=== PATIENT | female | born 1990 | race Hispanic/Latino ===

== ENCOUNTER → 2020-03-10 14:22 | Outpatient (CLI) | payer BC, SELFPAY ==
--- NOTE | ~2020-03-10 | US_ITS ---
EXAMINATION: US OB transvaginal DATE: 03/10/2020 14:52 INDICATION: Pelvic pain during first trimester . TECHNIQUE: Real-time pelvic ultrasound utilizing both a transvaginal and transabdominal probe was pe rformed. The interpreting radiologist was not present for the study. COMPARISON: None. FINDINGS: The uterus measures 10.5 x 5.5 x 6.3 cm. There is an intrauterine gestational sac. A yolk sac and fe suni pole are identified. The crown rump length measures 3 mm, which correlates with an estimated gest ational age of 6 weeks and 0 days. heart motion is identified measuring 152 beats per minute (b pm) by M-mode Doppler. The right ovary measures 5.5 x 3.7 x 6.0 cm. There are 2 anechoic simple appearing cysts in the right ovary, the larger measuring 3.9 x 3.5 x 3.0 cm and the smaller measuring 3.4 x 2.5 x 3.2 cm. The lef t ovary is poorly visualized measuring approximately 3.6 x 2.2 x 2.5 cm. There is a small amount of a nechoic free fluid in the cul-de-sac. IMPRESSION: 1. Single living fetus with heart rate of 152 bpm. 2. Gestational age by ultrasound of 6 weeks 0 day(s) +/- 4 day(s) with ultrasound estimated date of delivery (JOCELYNN) of 11/03/2020. Reviewed, dictated and finalized at [facility]. TENANCE APPRENTICE IMPRESSION: 1. Single living fetus with heart rate of 152 bpm. 2. Gestational age by ultrasound of 6 weeks 0 day(s) +/- 4 day(s) with ultraso und estimated date of delivery (JOCELYNN) of 11/03/2020.
== END ==
PROVIDERS: Visit Provider Obstetrics & Gynecology
DX: O34.80 Maternal care for other abnormalities of pelvic organs, unspecified trimester (principal); Z3A.01 Less than 8 weeks gestation of pregnancy
CPT/HCPCS: 76817

== ENCOUNTER 2020-10-04 10:45 | Outpatient (CLI) | payer BC, SELFPAY ==
--- NOTE | ~2020-10-04 | US_ITS ---
EXAMINATION: US OB follow up DATE: 10/04/2020 11:33 INDICATION: Size greater than expected for estimated gestational age. TECHNIQUE: Real-time ultrasound of the pelvis was performed. The interpreting radiologist was not pre sent for the study. COMPARISON: 03/10/2020 FINDINGS: There is a single living fetus in breech presentation. The placenta is fundal. heart rate is 1 34 beats per minute (bpm). The amniotic fluid index is 18.5 cm, which is normal (5th%-95%: 7.7-24.9 cm at 36 weeks estimated gestational age) . The following biometric data were obtained: BPD: 9.0 cm -> 36 weeks 3 days Head circumference: 35.1 cm -> 40 weeks 6 days Abdominal circumference: 34.1 cm -> 38 weeks 0 days Femur length: 7.5 cm -> 38 weeks 1 days These measurements are concordant. Head circumference to abdominal circumference ratio: 1.03 (normal range 0.88-1.06). Estimated weight: 3410 g (+/-) 512 g or 7 lbs. 8 oz. (+/-) 1 lb. 2 oz. IMPRESSION: 1. Single living fetus in breech presentation with heart rate of 134 bpm. 2. Normal amniotic fluid index of 13.5 cm. 3. Estimated weight is 95th percentile by Hadlock criteria when 11/01/2020 is used as the estima liam date of delivery (JOCELYNN). Please correlate with clinical information or earlier ultrasounds for mos t accurate JOCELYNN. Reviewed, dictated and finalized at location A. IMPRESSION: 1. Single living fetus in breech presentation with heart rate of 134 bpm. 2. Normal amniotic fluid index of 13.5 cm. 3. Estimated weight is 95th percentile by Hadlock criteria when 11/01/2020 is used as the estimated date of delivery (JOCELYNN). Please correlate with clinica l information or earlier ultrasounds for most accurate JOCELYNN.
== END 2020-10-04 10:46 | disposition home or self-care (01) ==
PROVIDERS: Visit Provider Obstetrics & Gynecology Gynecology
DX: O36.63X0 Maternal care for excessive fetal growth, third trimester, not applicable or unspecified (principal); Z3A.36 36 weeks gestation of pregnancy
CPT/HCPCS: 76816

== ENCOUNTER 2020-10-15 14:12 | Outpatient (RCR) | payer BC, SELFPAY ==
[2020-10-15 15:24] VITALS: BP 111/60; PULSE 78
== END 2020-10-27 07:44 | disposition home or self-care (01) ==
LOC: ANHOBOP 14:12
PROVIDERS: Visit Provider Obstetrics & Gynecology
DX: O24.419 Gestational diabetes mellitus in pregnancy, unspecified control (principal); Z3A.37 37 weeks gestation of pregnancy
CPT/HCPCS: 59025

== ENCOUNTER 2020-10-25 11:32 | Outpatient (CLI) | payer BC, SELFPAY ==
[2020-10-25 11:58] LABS: Basophils Percent Auto 0.4 % (0.2-1.2); Eosinophils Absolute Auto 0.1 K/mm3 (0-0.3); Eosinophils Percent Auto 0.7 % (0-4.4); Hematocrit 37.7 % (37.0-47.0); Hemoglobin 12.4 g/dL (12.0-15.0); Immature Granulocyte Absolute 0.06 K/mm3 (0.00-0.031); Immature Granulocyte Percent A 0.5 % (0-0.5); Lymphocytes Percent Auto 15.1 % (18.3-44.2); Mean Corpuscular HGB Conc 32.9 g/dl (32-36); Mean Corpuscular Hemoglobin 30.6 pg (26-34); Mean Corpuscular Volume 93.1 fl (80-100); Mean Platelet Volume 10.8 fl (7.4-10.4); Monocytes Absolute Auto 0.6 K/mm3 (0.1-0.6); Monocytes Percent Auto 5.5 % (2.6-8.5); Neutrophils Absolute Auto 8.8 K/mm3 (1.3-6.7); Neutrophils Percent Auto 77.8 % (45.5-73.1); Platelet Count Result 264 k/mm3 (150-375); Red Blood Count 4.05 M/mm3 (4.2-5.4); Red Cell Distribution Width 12.4 % (11.5-14.5); White Blood Count 11.3 K/mm3 (4.5-10.0)
[2020-10-26 11:52] LABS: Rapid Plasma Reagin Non-Reactive (NonReactive)
== END 2020-10-25 11:33 | disposition home or self-care (01) ==
LOC: ANHOBOP 11:42
PROVIDERS: Visit Provider Obstetrics & Gynecology
DX: Z01.818 Encounter for other preprocedural examination (principal)
CPT/HCPCS: 36415; 85025; 86592; 86850; 86900; 86901

== ENCOUNTER 2020-10-26 05:20 | Inpatient (IN) | payer BC, SELFPAY ==
[2020-10-26] VITALS (61 sets, daily range): BP systolic 79–121; BP diastolic 46–78; PULSE 57–118; RESP 14–18; TEMP 35.9–37; O2SAT 98–100; BMI 37.3
--- NOTE | 2020-10-26 06:42 | WPDANESEPPF ---
Anes - Initial Pre Proc Eval Procedure: Operation Date: 10/26/20 07:30 Proposed Procedures p Repeat Section - Brandon Colby MD Date/Time: 10/26/20 06:42 Surgeon: Brandon Colby MD Pre Op Diagnosis: Patient Data Age: 29 Gender: F Height: 1.7 m Weight: 108 kg Last Vital Signs Pulse 83 10/26/20 06:16 BP 105/56 L 10/26/20 06:16 Allergies Allergy/AdvReac Type Severity Reaction Status Date / Time No Known Allergies Allergy Verified 10/06/20 11:55 Home Medications Medication Instructions Recorded Confirmed Type PNV cmb#95-ferrous fumarate-FA 1 tablet PO DAILY 10/06/20 10/06/20 History [] Patient hx anesthesia problems: none Family hx anesthesia problems: none PMFSH Family History Family History (Updated 10/06/20 @ 12:33 by Kevin Gupta RN) Other No pertinent family history Social History Social History Substance use: never Gender identity (if verbalized by the patient): Female Spiritual care concerns: No Anes - Eval Final PreProcedure Day of Procedure 10/26/20 06:42 Patient weight: obese Heart: regular rate and rhythm Lungs: clear to auscultation and normal air movement Airway: Mallampati scale class II Neurological: alert and oriented Last oral intake: >/= 8 hours ASA classification: II Emergent: no Anesthetic plan: proceed Anesthesia type and monitoring: regional spinal and standard monitoring Informed Consent: The patient's anesthetic plan and its attendant risks and benefits were discussed with the patient/family/POA. Questions were solicited and answers provided to the satisfaction of the patient/family/POA.
[2020-10-26 06:59] LABS: Glucose Point of Care 102 mg/dl (65-105)
[2020-10-26] MEDS: LACTATED RINGERS 1,000 ML 125 ML IV CONT ×2 (07:25→09:13)
--- NOTE | 2020-10-26 07:31 | LDADM ---
This patient, Thea Owusu, was admitted to Labor/Delivery/Recovery 120 on 10/26/20 at 05:20. Plans for scheduled section, pain management and were discussed with patient. Patient/family oriented to hospital policies and general routines including ID bracelet, bed and alarms, visiting hours, pain management, procedures, bathroom and other care routines, personal items, smoking policy, room service/diet and guest tray routines, infant security routines, and visiting hours. Patient/Family are encouraged to report perceived risks to care and to ask questions if they do not understand what they are told or what they should do. See OBIX for further documentation.
--- NOTE | 2020-10-26 07:51 | P.HP_ITS ---
H&P: HPI History of Present Illness Date/Time: 10/26/20 07:51 29 y/o at 39 weeks by lmp and u/s for EDCof 11/01/20 presents for scheduled csection. patient complicated by prior twin with csection and breech presentation. Fetus LGA Chief Complaint: scheduled for csection [facility] Surgical History Surgical History (Updated 10/26/20 @ 07:55 by Brandon Colby MD) H/O: Family History Family History Other No pertinent family history Social History Social History Smoking status: Never smoker Substance use: never Gender identity (if verbalized by the patient): Female Spiritual care concerns: No Meds Home Medications and Allergies Home Medications Medication Instructions Recorded Confirmed Type PNV cmb#95-ferrous fumarate-FA 1 tablet PO DAILY 10/06/20 10/06/20 History [] Allergies Allergy/AdvReac Type Severity Reaction Status Date / Time No Known Allergies Allergy Verified 10/06/20 11:55 Vital Signs Vital Signs - 24 hr 10/26/20 06:16 Pulse Rate 83 Blood Pressure 105/56 L Exam Const: Orientation/consciousness: patient oriented x3 GI: Other: fundus @ 43 cm Assessment and Plan Assessment and plan (1) H/O: : Code(s): Z98.891 - History of uterine scar from previous surgery Status: Acute Additional Plan scheduled for a repeat csection. Risk and benefits reviewed patient agrees to proceed.
--- NOTE | 2020-10-26 07:56 | WPDHPUPDATE1 ---
History and Physical Update Update Date/Time: 10/26/20 07:56 History and Physical has been reviewed, including an updated exam of the patient. There are NO changes in the patient's condition. Risks, benefits, and alternatives have been discussed and questions answered. Patient agrees to proceed with procedure.
[2020-10-26] MEDS: KETOROLAC 30 MG/ML VIAL (*BKC) IV PUSH (08:45)
--- NOTE | 2020-10-26 09:01 | PM.OBPRVD ---
OB - Delivery Note Procedure Delivery date: 10/26/20 Procedure: Procedures Operation Date: 10/26/20 07:30 <No data on this case meets the specified criteria> events: Previous and Gestational Diabetes Specimen: Yes Quantitative Blood Loss (ml): 260 Anesthesia type: Spinal Disposition: PACU [place] Date of : 10/26/20 Time of : 08:29 Weeks of gestation at delivery: 39 gender: Male Weight (pounds): 8 Weight (ounces): 15 presentation: jojo breech Placenta delivery description: Spontaneous cord vessel description: 3 Vessels score one minute: 9 score five minutes: 9
--- NOTE | 2020-10-26 09:03 | W.PM.PROC2 ---
Procedure Note - Detailed Date of Procedure 10/26/20 Pre-op Diagnosis Post-op Diagnosis same Procedure Performed repeat ltcs Surgeon Brandon Colby MD Anesthesia spinal Indications breech and repeat csection Description of Procedure The patient was taken to the operating room with IV running. She was prepped and draped in a normal sterile fashion and placed in a supine position with a leftward tilt. A Pfannenstiel skin incision was made with a scalpel carried down to underlying layer of fascia. This fascia incision was then extended bilaterally with Angel scissors. The superior aspect of the incision was grasped with Jose clamps elevated and dissected off the rectus muscles the inferior aspect of the incision was grasped with Jose clamps and elevated and dissected off the rectus muscles. The rectus muscles were in the midline with blunt and sharp dissection. The peritoneum was grasped and entered sharply with Metzenbaum scissors. The bladder blade was inserted and vesicouterine peritoneum was grasped with pickups entered sharply with Metzenbaum scissors and a bladder flap was created digitally. The bladder blade was reinserted the lower uterine segment was incised in a transverse fashion with the scalpel and extended bluntly. The fetus was noted to be in breech jojo breech presentation and the fetus was delivered atraumatically and off to the waiting nurse. Cord blood was obtained cord gases were obtained. The placenta was allowed spontaneously the uterus was cleared of all clots and debris and uterus was exteriorized uterine incision was closed with 0 Monocryl in a running locked fashion. A 2nd layer the same suture was used to imbricate this incision. Uterus was returned to the abdomen the gutters were cleared of all clots and debris and uterine incision was covered with Interceed in a T-fashion. The muscles were examined for hemostasis the fascia was closed with 0 Vicryl suture. Subcutaneous tissue was irrigated and hemostasis assured and the subcutaneous tissue was closed with 3 0 plain gut and the skin was closed with 4 Vicryl on a Samir needle. Patient received 2 g Ancef prior to incision. Estimated Blood Loss 260 Urine Output 100 Drains Yes Pathology yes Complications None Condition stable Disposition PACU
[2020-10-26] MEDS: ONDANSETRON INJ 4 MG/2 ML VIAL IV PUSH ×3 (09:05→21:12)
[2020-10-26] MEDS: OXYTOCIN 30 UNITS/NS 500 ML 30 UNITS/500 ML BAG 125 UNITS IV CONT (09:47)
[2020-10-26] MEDS: diphenhydrAMINE HCl INJ 50 MG/ML VIAL 12.5 MG IV PUSH (10:57)
--- NOTE | 2020-10-26 11:53 | PC.NURSE ---
Addendum entered by Joyce Swanson RN 10/26/20 11:53: Patient arrived on the floor at 1106, time should have been changed on the note and was not. Original Note: Patient transferred to post room # [id number] via stretcher. Support person present. Oriented to unit, room, information board, rooming in, admission packet and security measures. Patient verbalizes understanding.
--- NOTE | 2020-10-26 12:45 | PC.NURSE ---
Mother called out for assist with feeding. Mother reports infant eagerly fed for first feeding. appears to have a rounded palate and tongue is able to move freely past gum ridge, lips are easily flanged. Reviewed infant feeding cues, frequencies, duration of feedings, feeding elimination flow sheet, and signs of adequate intake. Demonstrated stimulation techniques to wake for feeding. Assisted with to breast. Reviewed positioning/alignment in cross cradle, holding breast in ?U? hold and guided asymmetrical latch on. Infant able to latch correctly. Infant nursed eagerly, with steady draws and frequent swallowing noted. Reviewed signs of a correct latch, effective nursing and suck swallow ratio. was able to maintain latch without discomfort to mother. Demonstrated how to adjust latch more deeply while feeding. Nipple care reviewed of lanolin after feedings, warm compresses as needed. Suggested mother stimulate while feeding to increase stimulate, increase intake and to assist with maintaining deep latch. Instructed mother to call out for RN assistance if she is unable to latch for feeding or she has discomfort with nursing. Instructed feeding should be initiated three hours from start of last feeding or if feeding cues are noted before. Mother voiced understanding of information shared.
[2020-10-26] MEDS: DEXTROSE 5%/0.45% SOD CHL 1,000 ML 125 ML IV CONT (13:27)
[2020-10-26] MEDS: LORATADINE 10 MG TABLET PO (13:28)
[2020-10-26] MEDS: KCL 20 MEQ/D5/0.45% SOD CHL 1,000 ML 125 ML IV CONT (20:13)
[2020-10-26] MEDS: IBUPROFEN 600 MG TABLET PO (21:15)
[2020-10-26] MEDS: SIMETHICONE 80 MG TAB.CHEW PO (21:15)
[2020-10-26] MEDS: HYDROcodone/acetaminophen (*CRX) 10-325 MG TABLET 1 TAB PO (21:15)
[2020-10-27] VITALS: BP 102/47; PULSE 67; RESP 18; TEMP 37.2
[2020-10-27 04:00] VITALS: BP 106/65; PULSE 66; RESP 18; TEMP 36.9
[2020-10-27 05:42] LABS: Basophils Absolute Auto 0.1 K/mm3 (0.0-0.1); Basophils Percent Auto 0.3 % (0.2-1.2); Eosinophils Absolute Auto 0.1 K/mm3 (0-0.3); Eosinophils Percent Auto 0.3 % (0-4.4); Hematocrit 32.4 % (37.0-47.0); Hemoglobin 10.9 g/dL (12.0-15.0); Immature Granulocyte Absolute 0.09 K/mm3 (0.00-0.031); Immature Granulocyte Percent A 0.6 % (0-0.5); Lymphocytes Absolute Auto 1.81 K/mm3 (0.9-3.2); Lymphocytes Percent Auto 12.4 % (18.3-44.2); Mean Corpuscular HGB Conc 33.6 g/dl (32-36); Mean Corpuscular Hemoglobin 31.2 pg (26-34); Mean Corpuscular Volume 92.8 fl (80-100); Mean Platelet Volume 11.6 fl (7.4-10.4); Monocytes Percent Auto 6.8 % (2.6-8.5); Neutrophils Absolute Auto 11.6 K/mm3 (1.3-6.7); Neutrophils Percent Auto 79.6 % (45.5-73.1); Platelet Count Result 241 k/mm3 (150-375); Red Blood Count 3.49 M/mm3 (4.2-5.4); Red Cell Distribution Width 12.4 % (11.5-14.5); White Blood Count 14.6 K/mm3 (4.5-10.0)
--- NOTE | 2020-10-27 07:25 | WPDANLDPN2 ---
Anes-Prog Note L&D Date/Time: 10/27/20 07:25 Comfortable throughout: section Neuraxial method: spinal Epidural/Spinal procedure site: clean & non-tender Neuro status: Neuro function grossly intact. Cardiovascular status: normal Respiratory status: normal Airway patency: baseline Mental status: baseline Post-Op hydration status: normal Vital Signs: Last Vital Signs Temp 36.9 C 10/27/20 04:00 Pulse 66 10/27/20 04:00 Resp 18 10/27/20 04:00 BP 106/65 10/27/20 04:00 Pulse Ox 100 10/26/20 19:00 Pain score (VAS): 05/02 I/O: Intake & Output 10/26/20 10/26/20 10/27/20 15:59 23:59 07:59 Intake Total 1550 1700 1100 Output Total 934 27 4697 Balance 1200 1650 -800 Post-procedural complaints: none Patient feedback: Patient satisfied with anesthetic care.
--- NOTE | 2020-10-27 07:25 | WPDANLDNPN2 ---
Anes-Prog Note L&D-Neuraxial Date/Time: 10/27/20 07:25 Neuraxial medications: intrathecal PF morphine Opiod-related complaints: none Patient feedback: Patient satisfied with post-operative pain management.
--- NOTE | 2020-10-27 08:00 | PC.NURSE ---
PT introductions made and plan of care discussed per post op c section, pain management, breast feeding, daily care activities. PT verbalized understanding of such care. PT received instructions and education this shift via one to one discussion, demonstration and mom baby care guide. Both spouse and pt were recipients of such instructions and no barriers to learning were identified.
[2020-10-27] MEDS: DOCUSATE SODIUM 100 MG CAPSULE PO ×2 (08:07→19:15)
[2020-10-27] MEDS: MULTIVIT/MIN/PREN/FOL AC/IRON TABLET 1 TAB PO (08:07)
[2020-10-27] MEDS: SIMETHICONE 80 MG TAB.CHEW PO ×4 (08:07→22:10)
[2020-10-27] MEDS: HYDROcodone/acetaminophen (*CRX) 10-325 MG TABLET 1 TAB PO ×3 (08:08→19:14)
[2020-10-27] MEDS: LORATADINE 10 MG TABLET PO (08:08)
[2020-10-27] MEDS: IBUPROFEN 600 MG TABLET PO ×3 (08:09→22:11)
[2020-10-27] MEDS: LANOLIN (LANSINOH) 7.5 GM CREAM 1 APPLIC TOPICAL (08:10)
[2020-10-27 09:05] VITALS: BP 108/64; PULSE 73; RESP 18; TEMP 37.1; O2SAT 99
--- NOTE | 2020-10-27 11:00 | PC.NURSE ---
Consulted with patient, reviewed infant feeding cues, frequencies, duration of feedings, feeding elimination flow sheet, and signs of adequate intake. Nipple care reviewed. Instructed mother to call out for RN assistance if she is unable to latch for feeding or she has discomfort with nursing. Instructed feeding should be initiated three hours from start of last feeding or if feeding cues are noted before. Patient asked to call out to have next feeding assessed. Mother voiced understanding of information shared.
[2020-10-27 19:15] VITALS: BP 96/58; PULSE 70; RESP 16; RESP 18; TEMP 36.4; O2SAT 99
--- NOTE | 2020-10-28 00:16 | P.PNOB_ITS ---
OB - PN: Subj Subjective Date/time seen: 10/27/20 07:46 doing well no complaints pain controlled with prn medication OB - PN: Obj Data Labs CBC & Chem 7: 10/27/20 03:09 Labs: Laboratory Results - last 24 hr 10/27/20 03:09 WBC 14.6 H RBC 3.49 L Hgb 10.9 L Hct 32.4 L MCV 92.8 MCH 31.2 MCHC 33.6 RDW 12.4 Plt Count 241 MPV 11.6 H Immature Gran % (Auto) 0.6 H Neut % (Auto) 79.6 H Lymph % (Auto) 12.4 L Williams % (Auto) 6.8 Eos % (Auto) 0.3 Baso % (Auto) 0.3 Lymph # (Auto) 1.81 Williams # (Auto) 1.0 H Eos # (Auto) 0.1 Baso # (Auto) 0.1 Abs Immat Gran (auto) 0.09 H Absolute Neuts (auto) 11.6 H Absolute Nucleated RBC 0.0 Nucleated RBC % 0.0 OB - PN A/P Assessment and Plan (1) H/O: : Code(s): Z98.891 - History of uterine scar from previous surgery Status: Acute Assessment and Plan: s/p csection continue with pp care. Time Spent With Patient Time: Total time spent is greater than 50% in coordination of care (as documented) at patient's floor/unit and/or counseling patient: Exam Narrative: Exam Narrative: inc: c/d/i
[2020-10-28] MEDS: HYDROcodone/acetaminophen (*CRX) 10-325 MG TABLET 1 TAB PO ×3 (00:20→10:03)
[2020-10-28] MEDS: SIMETHICONE 80 MG TAB.CHEW PO (04:48)
[2020-10-28] MEDS: IBUPROFEN 600 MG TABLET PO ×2 (04:48→11:45)
--- NOTE | 2020-10-28 07:30 | PC.NURSE ---
Pt introductions made and plan of care discussed per post op c section, pain management, breast feeding, daily care activities and pending discharge to home. PT received discharge instructions one to one discussion, demonstration and mom baby care guide. PT and spouse recipients of such instructions. no barriers to learning identified. PT verbalized understanding
[2020-10-28 08:40] VITALS: BP 109/59; PULSE 76; RESP 18; TEMP 36.8; O2SAT 99
--- NOTE | 2020-10-28 09:45 | PC.NURSE ---
Mother called out for assist with feeding. Mother states is sleepy for some feedings and having issues maintaining deep latch causing her discomfort. is able to freely thrust tongue past gum ridge. Skin is intact on both nipples, redness noted. Nipple care reviewed of lanolin after feedings, warm compresses as needed. Reviewed feeding cues, frequencies, duration of feedings, feeding elimination flow sheet, and signs of adequate intake. Demonstrated stimulation techniques to wake for feeding. Assisted with to breast. Mother attempts latch using cradle allowing to latch shallow to nipple only. Reviewed positioning/alignment in cross cradle, holding breast in ?U? hold and guided asymmetrical latch on. Infant able to latch correctly. Infant nursed eagerly, with steady draws and frequent swallowing noted. Suggested mother stimulate while feeding to increase stimulate, increase intake and to assist with maintaining deep latch. Reviewed signs of a correct latch, effective nursing and suck swallow ratio. would slip to shallow latch, mother reports tenderness. Demonstrated how to adjust latch more deeply while feeding. Mother reports she can feel change in latch and has no tenderness. Advised mother to continue to hold breast during entire feeding and adjusting latch as needed. Mother is planning on discharge within a few hours. Mother is able to independently latch infant with appropriate positioning/alignment. She denies any nipple discomfort, is feeding as required and waking infant to feed if needed. has had at least 8 effective feedings in the past 24 hours, and is currently meeting outcomes for weight, output, jaundice and feeding frequencies. Mother states she feels confident to continue effective at home. Reviewed transition to breast milk, signs of adequate intake, and engorgement/relief. Instructed to call ICP if intake/output less than required. Reviewed regular medications mother is taking. Information provided per Jeni. Reviewed community resources on the [employer] website and in the Mom/Baby guide. Information on outpatient services provided. Mother has no further questions at this time.
[2020-10-28 10:00] VITALS: PULSE 76; RESP 18; O2SAT 99
[2020-10-28] MEDS: MULTIVIT/MIN/PREN/FOL AC/IRON TABLET 1 TAB PO (10:02)
[2020-10-28] MEDS: DOCUSATE SODIUM 100 MG CAPSULE PO (10:02)
[2020-10-28] MEDS: LORATADINE 10 MG TABLET PO (10:04)
--- NOTE | 2020-10-28 11:30 | PC.NURSE ---
PT received discharge instructions per protocol and verbalized understanding of such instructions
--- NOTE | 2020-10-28 11:59 | PC.NURSE ---
PT discharged to home ambulatory accompanied by spouse and and taken to waiting car. Follow up appts confirmed
[2020-10-29 08:42] VITALS: BP 116/60; PULSE 67; RESP 16; TEMP 37.2; O2SAT 99
--- NOTE | 2020-11-09 11:15 | PM.OBDSVD ---
DS: Admitting Diagnosis Admitting Diagnosis Admitting Diagnosis: repeat csection OB - DS: Summary OB Procedures : NST and Ultrasound OB Procedures Intrapartum: OB Procedures: : None and Blood Type Peripartum Data Infant Delivery Method: Section Procedures: Procedures Operation Date: 10/26/20 07:30 Actual Procedure Side Surgeon p Repeat Section Brandon Colby MD complications: none Status at Discharge Functional status at discharge: independent ambulation Time Spent with Patient Time attestation: Total time spent providing and/or coordinating discharge services: DS: Data Data Completed and Pending Completed studies during hospitalization: Pending at discharge 10/26/20 09:22 Surgical [PTH] Routine Discharge Plan Discharge Consulting providers: Fercho Flores Discharging Clinician: Brandon Colby Anticipated Discharge Date/Time: 10/28/20 09:04 Patient Disposition: Home, Self-Care Activity: may shower and pelvic rest Diet: as tolerated Discharge Instructions: Education: Mom and Baby Guide Given to: Mother Follow-Up: Call your delivering provider's office for an appointment to be seen in: 4 Weeks Mom and baby should come to the [facility] for the follow-up appointment. Appointment Date/Time: October 28, 2020 at 11:00 am What to expect at your follow-up visit: Blood Pressure Check Call [phone] if you are unable to keep your appointment time. BREAST CARE: * Wear a snug supportive bra. * For engorgement discomfort: Breast Feeding: * Apply warm moist washcloths * Express milk as needed to relieve engorgement * Wear loose clothing Bottle Feeding: * May apply ice packs * For sore nipples: * Identify correct latch-on * Apply warm moist washcloths before and after nursing * Air dry nipples after nursing * May apply Lansinoh cream to nipples PERINEAL CARE: * Until bleeding stops, use your kaylen bottle after urinating * Change your pad frequently throughout the day * You may take sitz baths several times a day (fill your bathtub with warm water and soak for 20 minutes.) Do NOT bathe in the water * No tub baths until seen by your physician - You may shower ACTIVITY: * Rest as much as possible. * Do not exercise or lift anything heavier than your baby (such as laundry or other children.) * Avoid stairs or driving as much as possible. * Do not put anything into the vagina. No douching, tampons, or sexual activity until seen by physician. NOTIFY PHYSICIAN IF YOU HAVE ANY QUESTIONS OR IF ANY OF THE FOLLOWING SYMPTOMS OCCUR: * If your perineum becomes red, swollen, or more painful than what you have experienced in the hospital. * If your vaginal bleeding becomes foul smelling. * If your vaginal bleeding becomes more heavy than a period or if your bleeding changes from pink to bright red. However, you may pass an occasional walnut-sized clot once or twice for the first week . * If you experience a sharp, shooting pain in you calves. * If you discover a hard, reddened area on your breast or if you experience flu-like symptoms. * If you have a fever of 100.4 or greater DIET: * Eat regular, well-balanced meals. * Drink plenty of fluids daily. If , drink to thirst. Patient Instructions: Antibiotic Form Stand Alone Forms: General Discharge Information Follow-up/Referrals: Brandon Colby MD [Physician] - Discharge Medications: New acetaminophen [Mapap (acetaminophen)] 325 mg Tablet 650 mg PO Q6H PRN (Reason: Mild Pain (1-3)) RF: 0 ibuprofen 600 mg Tablet 600 mg PO Q6H PRN (Reason: Cramping) RF: 0 KPN Tablet 1 tab PO DAILY RF: 0 hydrocodone-acetaminophen 5-325 mg Tablet 1 tablet PO Q3H PRN (Reason: Moderate Pain (4-6)) Qty: 30 RF: 0 Discontinued P
== END 2020-10-28 11:59 | disposition home or self-care (01) | DRG 788 ==
LOC: ANHLDR 05:24 → ANHOB2 11:11
PROVIDERS: Admitting Provider Obstetrics & Gynecology; Visit Provider Obstetrics & Gynecology
PROC: 10D00Z1 Extraction of Products of Conception, Low, Open Approach (ICD-10-PCS; CPT 59514; principal; 2020-10-26 07:30)
DX: O34.211 Maternal care for low transverse scar from previous cesarean delivery (principal); Z37.0 Single live birth; Z3A.39 39 weeks gestation of pregnancy; O24.429 Gestational diabetes mellitus in childbirth, unspecified control; O99.214 Obesity complicating childbirth; E66.9 Obesity, unspecified; O32.1XX0 Maternal care for breech presentation, not applicable or unspecified
CPT/HCPCS: 36415; 82948; 85025; 88307; A9270; J0131; J1100; J1200; J1885; J2274; J2370; J2405; J2590; J3480; J7120

== ENCOUNTER 2023-08-01 09:47 | Outpatient (CLI) | payer BC, SELFPAY ==
--- NOTE | ~2023-08-01 | US_ITS ---
EXAMINATION: US OB limited DATE: 08/01/2023 10:29 INDICATION: Prior twin presenting with early second trimester TECHNIQUE: Real-time ultrasound of the pelvis was performed. The interpreting radiologist was not pre sent for the study. COMPARISON: None. FINDINGS: There is a single living fetus in breech presentation. The placenta is posterior and not low-lying w ith caudal margin 8.5 cm from the internal cervical os. heart rate is 139 beats per minute (bpm ). The amniotic fluid volume is subjectively normal. 4.8 cm mass along the anterior uterine wall most likely uterine fibroid. The following biometric data were obtained: [place]-rump length: 9.2 cm -> 15 weeks 1 days BPD: 3.1 cm -> 15 weeks 6 days Head circumference: 12.4 cm -> 16 weeks 2 days Abdominal circumference: 9.8 cm -> 15 weeks 6 days Femur length: 1.8 cm -> 15 weeks 2 days These measurements are concordant. Head circumference to abdominal circumference ratio: 1.26 (normal range 1.06-1.35). Estimated weight: 131 g (+/-) 20 g, 5 oz (+/-) 1 oz IMPRESSION: 1. Single living fetus in breech presentation. 2. Gestational age by ultrasound of 15 weeks 5 day(s) plus/-1 week and 1 day with ultrasound estimat ed date of delivery (JOCELYNN) of 01/18/2024. Estimated weight is >97th percentile by Hadlock criteri a when 01/28/2024 is used as the JOCELYNN. Please correlate with clinical information or earlier ultrasound s for most accurate JOCELYNN. 3. 4.8 cm likely fibroid at the anterior uterine wall. Reviewed, dictated and finalized at location B. IMPRESSION: 1. Single living fetus in breech presentation. 2. Gestational age by ultrasound of 15 weeks 5 day(s) plus/-1 week and 1 day w ith ultrasound estimated date of delivery (JOCELYNN) of 01/18/2024. Estimated w eight is >97th percentile by Hadlock criteria when 01/28/2024 is used as the JOCELYNN . Please correlate with clinical information or earlier ultrasounds for most ac curate JOCELYNN. 3. 4.8 cm likely fibroid at the anterior uterine wall.
== END 2023-08-01 09:48 ==
PROVIDERS: PCP Nurse Practitioner Women's Health; Visit Provider Nurse Practitioner Women's Health
DX: O30.049 Twin pregnancy, dichorionic/diamniotic, unspecified trimester (principal); Z3A.15 15 weeks gestation of pregnancy
CPT/HCPCS: 76815

== ENCOUNTER 2023-09-27 10:10 | Outpatient (CLI) | payer BC, SELFPAY ==
--- NOTE | ~2023-09-27 | US_ITS ---
EXAMINATION: US OB /maternal detail DATE: 09/27/2023 10:48 INDICATION: anatomic survey. TECHNIQUE: Real-time ultrasound of the pelvis was performed. COMPARISON: Ultrasound 08/01/2023 FINDINGS: There is a single living fetus in breech presentation. The placenta is posterior, 5.5 cm from the ce rvix. The cervical length is 2.7 cm on transabdominal images, which is normal. heart rate is 13 5 beats per minute (bpm). The amniotic fluid volume is subjectively normal. The following biometric data were obtained: Biparietal diameter (BPD): 5.6 cm; head circumference (HC): 21.1 cm; abdominal circumference (AC): 20 .7 cm; femur length (FL): 4.6 cm. These measurements are discordant with low HC/AC. Estimated weight is 745 g +/- 112 g, which correlates with the 86th percentile when 01/18/24 is used as estimated date of delivery. As single measurements, these parameters are each equal to the following estimated gestational ages: BPD: 22 weeks 6 days. HC: 23 weeks 1 days. AC: 25 weeks 2 days. FL: 25 weeks 1 days. estimated gestational age based solely on measurements from this exam is 24 weeks 1 days +/- 1 weeks 5 days. The cerebral ventricles, cerebellum, cisterna magna, and visualized portions of the spine are normal. The heart is normal. The diaphragm, stomach, kidneys, and bladder are normal. There are two umbilica l arteries to yield a 3-vessel cord. The cord insertion is normal. IMPRESSION: 1. Single living fetus in breech presentation. 2. Estimated weight is 745 g +/- 112 g, which correlates with the 86th percentile when 01/18/24 is used as estimated date of delivery. 3. Normal anatomic survey. 4. Discordant biometrics with low HC/AC ratio. Reviewed, dictated and finalized at location A. IMPRESSION: 1. Single living fetus in breech presentation. 2. Estimated weight is 745 g +/- 112 g, which correlates with the 86th p ercentile when 01/18/24 is used as estimated date of delivery. 3. Normal anatomic survey. 4. Discordant biometrics with low HC/AC ratio.
== END 2023-09-27 10:11 ==
LOC: MICIMG 10:12
PROVIDERS: PCP Advanced Practice Midwife; Visit Provider Advanced Practice Midwife
DX: Z36.9 Encounter for antenatal screening, unspecified (principal)
CPT/HCPCS: 76805

== ENCOUNTER 2023-12-17 14:33 | Outpatient (RCR) | payer BC, SELFPAY | END 2024-03-16 23:59 | disposition home or self-care (01) | LOC: ANHOBOP 14:33 | PROVIDERS: PCP Advanced Practice Midwife; Visit Provider Obstetrics & Gynecology Gynecology | DX: O24.419 Gestational diabetes mellitus in pregnancy, unspecified control (principal); Z3A.35 35 weeks gestation of pregnancy | CPT/HCPCS: 59025 ==

== ENCOUNTER 2024-01-14 05:17 | Inpatient (IN) | payer BC, SELFPAY ==
[2024-01-14] VITALS (44 sets, daily range): BP systolic 75–141; BP diastolic 46–77; PULSE 58–119; RESP 16–22; TEMP 36.5–37.4; O2SAT 99–100; BMI 36.9
--- NOTE | 2024-01-14 05:17 | LDADM ---
This patient, Thea Owusu, was admitted to Labor/Delivery/Recovery 120 on 01/14/24 at 05:17. Plans for labor, pain management and were discussed with patient. Patient/family oriented to hospital policies and general routines including ID bracelet, bed and alarms, visiting hours, pain management, procedures, bathroom and other care routines, personal items, smoking policy, room service/diet and guest tray routines, infant security routines, and visiting hours. Patient/Family are encouraged to report perceived risks to care and to ask questions if they do not understand what they are told or what they should do. See OBIX for further documentation.
[2024-01-14] MEDS: ACETAMINOPHEN 500 MG TABLET 1000 MG PO (06:03)
[2024-01-14] MEDS: LACTATED RINGERS 1,000 ML 125 ML IV CONT ×2 (06:03→07:08)
[2024-01-14 06:06] LABS: Basophils Percent Auto 0.3 % (0.2-1.2); Eosinophils Absolute Auto 0.1 K/mm3 (0-0.3); Hemoglobin 12.1 g/dL (12.0-15.0); Immature Granulocyte Absolute 0.07 K/mm3 (0.00-0.031); Immature Granulocyte Percent A 0.6 % (0-0.5); Lymphocytes Absolute Auto 2.08 K/mm3 (0.9-3.2); Lymphocytes Percent Auto 18.8 % (18.3-44.2); Mean Corpuscular HGB Conc 33.6 g/dl (32-36); Mean Corpuscular Hemoglobin 31.6 pg (26-34); Mean Platelet Volume 10.7 fl (7.4-10.4); Monocytes Absolute Auto 0.7 K/mm3 (0.1-0.6); Monocytes Percent Auto 6.6 % (2.6-8.5); Neutrophils Percent Auto 72.7 % (45.5-73.1); Platelet Count Result 238 k/mm3 (150-375); Red Blood Count 3.83 M/mm3 (4.2-5.4); Red Cell Distribution Width 12.3 % (11.5-14.5); White Blood Count 11.1 K/mm3 (4.5-10.0)
[2024-01-14 06:39] LABS: Glucose 91 mg/dL (65-110)
[2024-01-14 06:59] LABS: HIV 1/2 Ab P24 Ag Result Negative (Negative)
[2024-01-14] MEDS: FAMOTIDINE 20 MG/2 ML VIAL IV PUSH (07:16)
[2024-01-14] MEDS: ONDANSETRON INJ 4 MG/2 ML VIAL IV PUSH ×3 (07:16→14:20)
--- NOTE | 2024-01-14 07:16 | WPDHPUPDATE1 ---
History and Physical Update Update Date/Time: 01/14/24 07:16 History and Physical has been reviewed, including an updated exam of the patient. There are NO changes in the patient's condition. Risks, benefits, and alternatives have been discussed and questions answered. Patient agrees to proceed with procedure.
--- NOTE | 2024-01-14 07:16 | PM.IMHP ---
H&P: HPI History of Present Illness Date/Time: 01/14/24 07:16 Chief Complaint: Repeat and bilateral salpingectomy Narrative: the patient is a 33-year-old 3 para 2 being admitted for repeat at 39 and 3/7 weeks. In addition the patient has completed her childbearing wishes to proceed with bilateral salpingectomy for sterilization. The permanent and irreversible nature of tubal removal was discussed. The patient was aware of the rare failure with increased risk of ectopic should it fail. has been complicated by gestational diabetes insulin requiring. growth has been elevated at the 99th percentile. Accu-Cheks have been under good control. NSTs have been reactive. labs O positive, rubella immune, RPR negative, hepatitis-B surface antigen negative, HIV negative, group B strep positive. Review of Systems Review of Systems: not repeated day of surgery; patient states no changes in status [facility] Surgical History Surgical History (Updated 01/14/24 @ 07:19 by Genie Almaraz MD) H/O: X2 Family History Family History Other No pertinent family history Social History Social History Smoking status: Never smoker Substance use: never Do You Feel Safe in your Home?: Yes Lack of Transportation: No Lack of Food: Never True Current Housing: I Have Housing Concerned About Future Housing: No Difficulty Paying Gas/Electric Bills: No Difficulty Paying for Meds: No Currently Unemployed: No Education: High School Diploma/GED Difficulty w/ Childcare or Family Care: No Gender identity (if verbalized by the patient): Female Spiritual care concerns: No Meds Home Medications and Allergies Home Medications Medication Instructions Recorded Confirmed Type prenat.vits,glenn,hcz-qvnf-viqzm 1 tab PO DAILY 10/28/20 01/02/24 Rx (KPN tablet) ergocalciferol (vitamin D2) 1,250 See Rx Instructions .Route .COMPLEX 01/02/24 01/14/24 History mcg (50,000 unit) capsule insulin NPH isoph U-100 human 100 13 unit subcut HS 01/02/24 01/14/24 History unit/mL subcutaneous suspension (Humulin N NPH U-100 Insulin (isophane susp)) levothyroxine 50 mcg tablet 50 mcg PO DAILY 01/02/24 01/02/24 History Allergies Allergy/AdvReac Type Severity Reaction Status Date / Time No Known Allergies Allergy Verified 01/02/24 12:28 Vital Signs Vital Signs - 24 hr 01/14/24 05:46 01/14/24 05:47 01/14/24 06:39 Pulse Rate 91 80 Blood Pressure 107/61 114/71 Oxygen Delivery Room Air Exam Const: General: healthy appearing and alert Orientation/consciousness: patient oriented x3 Resp: Effort & Inspection: normal respiratory effort Auscultation: clear to auscultation bilaterally Cardio: Rate: regular rate Rhythm: regular rhythm GI: GI Palp: Yes Soft to palpation, No Tenderness to palpation present (GI) and Yes Other GI palpation findings present ( fundal height 41cm) : External Female Exam: normal external appearance Speculum Exam - Vagina: normal appearance of the vagina and normal vaginal discharge Speculum Exam - Cervix: normal appearance of the cervix Bimanual Exam- Adnexa, other: normal adnexae and No adnexal tenderness Neuro: General: patient oriented x3 H&P: Results Labs Labs: Short CBC 01/14/24 Range/Units 06:00 WBC 11.1 H (4.5-10.0) K/mm3 Hgb 12.1 (12.0-15.0) g/dL Hct 36.0 L (37.0-47.0) % Plt Count 238 (150-375) k/mm3 [facility] 01/14/24 06:00 Glucose 91 Assessment and Plan Assessment and plan (1) 39 weeks gestation of : Code(s): Z3A.39 - 39 weeks gestation of Status: Acute (2) H/O: : Code(s): Z98.891 - History of uterine scar from previous surgery Status: Acute Assessment and Plan: plan
--- NOTE | 2024-01-14 07:18 | WPDANESEPPF ---
Anes - Initial Pre Proc Eval Procedure: Operation Date: 01/14/24 07:30 Proposed Procedures p Repeat Section with Bilateral Salpingectomy - Genie Almaraz MD Date/Time: 01/14/24 07:18 Surgeon: Genie Almaraz MD Pre Op Diagnosis: C/S Patient Data Age: 33 Gender: F Height: 1.7 m Weight: 107 kg Last Vital Signs Pulse 80 01/14/24 05:47 BP 114/71 01/14/24 05:47 O2 Del Method Room Air 01/14/24 06:39 Allergies Allergy/AdvReac Type Severity Reaction Status Date / Time No Known Allergies Allergy Verified 01/02/24 12:28 Home Medications Medication Instructions Recorded Confirmed Type prenat.vits,glenn,tci-nfmp-cetzp 1 tab PO DAILY 10/28/20 01/02/24 Rx (KPN tablet) ergocalciferol (vitamin D2) 1,250 See Rx Instructions .Route .COMPLEX 01/02/24 01/14/24 History mcg (50,000 unit) capsule insulin NPH isoph U-100 human 100 13 unit subcut HS 01/02/24 01/14/24 History unit/mL subcutaneous suspension (Humulin N NPH U-100 Insulin (isophane susp)) levothyroxine 50 mcg tablet 50 mcg PO DAILY 01/02/24 01/02/24 History Laboratory Tests 01/14/24 06:00 WBC 11.1 H K/mm3 (4.5-10.0) RBC 3.83 L M/mm3 (4.2-5.4) Hgb 12.1 g/dL (12.0-15.0) Hct 36.0 L % (37.0-47.0) MCV 94.0 fl (80-100) MCH 31.6 pg (26-34) MCHC 33.6 g/dl (32-36) RDW 12.3 % (11.5-14.5) Plt Count 238 k/mm3 (150-375) MPV 10.7 H fl (7.4-10.4) Immature Gran % (Auto) 0.6 H % (0-0.5) Neut % (Auto) 72.7 % (45.5-73.1) Lymph % (Auto) 18.8 % (18.3-44.2) [place] % (Auto) 6.6 % (2.6-8.5) Eos % (Auto) 1.0 % (0-4.4) Baso % (Auto) 0.3 % (0.2-1.2) Lymph # (Auto) 2.08 K/mm3 (0.9-3.2) [place] # (Auto) 0.7 H K/mm3 (0.1-0.6) Eos # (Auto) 0.1 K/mm3 (0-0.3) Baso # (Auto) 0.0 K/mm3 (0.0-0.1) Abs Immat Gran (auto) 0.07 H K/mm3 (0.00-0.031) Absolute Neuts (auto) 8.0 H K/mm3 (1.3-6.7) Absolute Nucleated RBC 0.000 K/mm3 (0.0-0.012) Nucleated RBC % 0.0 % (0.0-0.2) Glucose 91 mg/dL (65-110) RPR Pending HIV 1&2 Ab/P24 Ag 4thGn Negative (Negative) Blood Type O Positive Antibody Screen Negative Patient hx anesthesia problems: none Family hx anesthesia problems: none Results Review: All pre-operative results and documents have been reviewed as part of the pre-operative evaluation. [facility] Surgical History Surgical History H/O: Family History Family History Other No pertinent family history Social History Social History Smoking status: Never smoker Substance use: never Do You Feel Safe in your Home?: Yes Lack of Transportation: No Lack of Food: Never True Current Housing: I Have Housing Concerned About Future Housing: No Difficulty Paying Gas/Electric Bills: No Difficulty Paying for Meds: No Currently Unemployed: No Education: High School Diploma/GED Difficulty w/ Childcare or Family Care: No Gender identity (if verbalized by the patient): Female Spiritual care concerns: No Anes - Eval Final PreProcedure Day of Procedure 01/14/24 07:18 Patient weight: obese Heart: regular rate and rhythm Lungs: clear to auscultation Airway: Mallampati scale class II Neurological: alert and oriented Last oral intake: >/= 8 hours ASA classification: III Emergent: no Anesthetic plan: proceed Anesthesia type and monitoring: regional spinal and standard monitoring Results Review: All pre-operative results and documents have been reviewed as part of the pre-operative evaluation. Informed Consent: The patient's anesthetic plan and its attendant risks and benefits were discussed with the patient/family/POA. Questions were solicited and answers provided
[2024-01-14] MEDS: ceFAZolin 2 GM/D5W 50 ML 2 GM/50 ML BAG IVPB (07:30)
[2024-01-14 07:35] LABS: Rapid Plasma Reagin Non-Reactive (NonReactive)
--- NOTE | 2024-01-14 08:35 | W.PM.OBCSD ---
OB - Delivery Note Procedure Delivery date: 01/14/24 Pre-op diagnosis: Gestational Diabetes (GDMA2), Previous Delivery (x2) and Other (requests sterilization) Post-op Diagnosis: Same Induction method: None Delivery monitor: External FHT and External Uterine Procedure Performed: Repeat Secondary branch: low cervical, transverse and Tubal Ligation (Bilateral salpingectomy) Surgeon: Genie Almaraz MD Anesthesia type: Spinal Description of Procedure/Findings: The patient is taken to operating placed under anesthesia in the dorsal supine position with left tilt. Once anesthesia is deemed adequate, she was prepped and draped in the usual sterile fashion. A Pfannenstiel skin incision was made with scalpel and carried down to the underlying fascia which was nicked in the midline. The incision was extended laterally with Angel scissors. [facility] ceased to tent the fascia which was then dissected off using sharp and blunt dissection. The rectus muscles are midline and the peritoneum was entered during this process. The omentum was noted to be adherent to the upper abdominal wall. The incision was extended with blunt traction. The bladder blade was placed and the vesicouterine peritoneum tented and entered with Metzenbaum scissors. The incision was extended laterally and the bladder flap created using sharp and blunt dissection due to adhesions. The bladder blade was replaced and the lower uterine segment was incised in a transverse fashion with a scalpel. The membranes are ruptured with clear fluid noted. The vertex was guided through the incision as the cardiology physician assistant applied fundal pressure the head was delivered. The remainder of the delivered quickly. Delayed cord clamping for 1minute was performed. The cord was then clamped and cut and the handed to the waiting nursery nurse. The cord blood was taken for cord gases and cord blood. The placenta was removed using manual traction. The uterus was cleared of all clots and debris and exteriorized. The uterine incision was closed using 0 Monocryl in a running locked fashion. Same suture was used to imbricate. Good hemostasis is noted. The cul-de-sac is irrigated. The right tube was grasped with a Fran and crossclamped using a Z clamp leaving approximately 2cm at the cornua. The tube was excised and the pedicle was tied using a Mariann stitch and a free tie of 0 Vicryl. The identical procedure was performed on the opposite side. Good hemostasis is noted at both tubal sites. The uterine incision was again inspected and noted to be hemostatic. The uterus was returned to the abdomen and the incision was again inspected and noted to be hemostatic. The fascial incision was closed using 0 Vicryl in a running fashion. The subcutaneous tissue was irrigated made hemostatic using Bovie cautery. Skin incision was closed using 4-0 Vicryl in a subcuticular fashion. Dermaflex was placed over the incision. Patient is taken to recovery in stable condition. Sponge, needle, and instrument counts are correct per the OR staff. Patient was given Ancef prior to incision. Specimen: Yes ( placenta and bilateral tubes) Estimated Blood Loss: 225 Drains: Yes ( Morris catheter) Packing: No Complications: No immediate complications Condition: Stable Disposition: PACU [place] Baby Date of : 01/14/24 Gestational Age by Date: 39 (39 06/27) Infant gender: Male Weight (pounds): 8 Weight (ounces): 13 presentation: vertex position: Right Occiput Anterior Placenta delivery description: Spontaneous Cord Vessel Description: 3 Vessels and Delayed Cord Clamping score one minute: 8 score five minutes: 9
--- NOTE | 2024-01-14 08:42 | PM.OBDSVD ---
DS: Admitting Diagnosis Discharge Date 01/16/24 Admitting Diagnosis Intrauterine at 39 and 3/7 previous section x2 request sterilization DS: Discharge Diagnosis Discharge Diagnosis (1) Encounter for sterilization: Code(s): Z30.2 - Encounter for sterilization Status: Acute (2) 39 weeks gestation of : Code(s): Z3A.39 - 39 weeks gestation of Status: Acute (3) H/O: : Code(s): Z98.891 - History of uterine scar from previous surgery Status: Acute OB - DS: Summary OB Procedures : NST, Ultrasound and Other ( management of GDMA2) OB Procedures Intrapartum: low cervical, transverse and Tubal ligation ( bilateral salpingectomy) OB Procedures: : None Peripartum Data Infant Delivery Method: Section Procedures: Procedures Operation Date: 01/14/24 07:30 <No data on this case meets the specified criteria> complications: none Status at Discharge Functional status at discharge: independent ambulation Overall status at discharge: patient is progressing back to baseline Time Spent with Patient Time attestation: Total time spent providing and/or coordinating discharge services: DS: Data Data Completed and Pending Labs on day of discharge: Labs from last 24 hours 01/14/24 06:00 WBC 11.1 H RBC 3.83 L Hgb 12.1 Hct 36.0 L MCV 94.0 MCH 31.6 MCHC 33.6 RDW 12.3 Plt Count 238 MPV 10.7 H Immature Gran % (Auto) 0.6 H Neut % (Auto) 72.7 Lymph % (Auto) 18.8 [place] % (Auto) 6.6 Eos % (Auto) 1.0 Baso % (Auto) 0.3 Lymph # (Auto) 2.08 [place] # (Auto) 0.7 H Eos # (Auto) 0.1 Baso # (Auto) 0.0 Abs Immat Gran (auto) 0.07 H Absolute Neuts (auto) 8.0 H Absolute Nucleated RBC 0.000 Nucleated RBC % 0.0 Glucose 91 RPR Non-reactive HIV 1&2 Ab/P24 Ag 4thGn Negative Blood Type O Positive Antibody Screen Negative Discharge Plan Discharge Attending physician on discharge: Genie Almaraz Discharging Clinician: Genie Almaraz Anticipated Discharge Date/Time: 01/16/24 08:43 Patient Disposition: Home, Self-Care Activity: may shower and may drive after 2 weeks Diet: regular Wound Care Instructions: incision open to air Patient Instructions: Antibiotic Form Stand Alone Forms: General Discharge Information Follow-up/Referrals: Genie Almaraz MD [Physician] - 1 Week ( and 6 week) Discharge Medications: New hydrocodone-acetaminophen 5-325 mg tablet 1 tablet PO Q4H PRN (Reason: pain) Qty: 14 0RF Continued levothyroxine 50 mcg Tablet 50 mcg PO DAILY ergocalciferol (vitamin D2) 1,250 mcg (50,000 unit) capsule See Rx Instructions .ROUTE .COMPLEX Rx Instructions: 1,250 mcg orally twice weekly Discontinued KPN Tablet 1 tab PO DAILY 0RF Humulin N NPH U-100 Insulin 100 unit/mL suspension 13 unit SUBCUT HS Date of admission: 01/14/24 05:17 Primary Care Provider: PHYSICIAN,[employer] Admitting Provider: Genie Almaraz Attending physician on admission: Genie Almaraz Condition: Stable
[2024-01-14] MEDS: OXYTOCIN 30 UNITS/NS 500 ML 30 UNITS/500 ML BAG 125 UNITS IV CONT (08:44)
[2024-01-14] MEDS: diphenhydrAMINE HCl INJ 50 MG/ML VIAL 25 MG IV PUSH (09:30)
[2024-01-14] MEDS: LACTATED RINGERS 250 ML 999 ML IVPB (09:39)
[2024-01-14] MEDS: ACETAMINOPHEN 325 MG TABLET 650 MG PO ×2 (13:31→19:43)
[2024-01-14] MEDS: KETOROLAC 15 MG/ML VIAL (*BKC) IV PUSH ×2 (13:32→19:43)
[2024-01-14] MEDS: DEXTROSE 5%/0.45% SOD CHL 1,000 ML 125 ML IV CONT (13:33)
[2024-01-14] MEDS: SIMETHICONE 80 MG TAB.CHEW PO (13:34)
[2024-01-14] MEDS: LIDOCAINE 5% PATCH 1 PATCH TRANSDERM (13:36)
--- NOTE | 2024-01-14 14:30 | PC.NURSE ---
Introductions were made, then consulted with patient to assess needs related to . Discussed with mother her?plans to feed?her and the?experience so far. Mother was attempting to put baby to breast but she said he isn't ready. It has only been two hours since the last feeding. Resources provided for inpatient and outpatient services with the feeding sheet, mom/baby guide and name/number written on the communication board. Mother voiced understanding of information and will call if there is a request for assistance. Reported to the Primary RN.
--- NOTE | 2024-01-14 14:47 | OBPPTRN ---
1040 Patient transferred to post room #287 via stretcher. Support person present. Oriented to unit, room, information board, rooming in, admission packet and security measures. Patient verbalizes understanding.
[2024-01-15] MEDS: diphenhydrAMINE HCl INJ 50 MG/ML VIAL 25 MG IV PUSH ×2 (00:30→08:39)
[2024-01-15] MEDS: ACETAMINOPHEN 325 MG TABLET 650 MG PO ×4 (01:32→20:46)
[2024-01-15] MEDS: KETOROLAC 15 MG/ML VIAL (*BKC) IV PUSH ×2 (01:33→08:37)
[2024-01-15 04:31] LABS: Basophils Percent Auto 0.3 % (0.2-1.2); Eosinophils Absolute Auto 0.1 K/mm3 (0-0.3); Eosinophils Percent Auto 0.7 % (0-4.4); Hematocrit 32.4 % (37.0-47.0); Hemoglobin 10.6 g/dL (12.0-15.0); Immature Granulocyte Absolute 0.08 K/mm3 (0.00-0.031); Immature Granulocyte Percent A 0.7 % (0-0.5); Lymphocytes Absolute Auto 1.52 K/mm3 (0.9-3.2); Lymphocytes Percent Auto 12.6 % (18.3-44.2); Mean Corpuscular HGB Conc 32.7 g/dl (32-36); Mean Corpuscular Volume 97.9 fl (80-100); Mean Platelet Volume 11.3 fl (7.4-10.4); Monocytes Absolute Auto 0.8 K/mm3 (0.1-0.6); Monocytes Percent Auto 6.9 % (2.6-8.5); Neutrophils Absolute Auto 9.5 K/mm3 (1.3-6.7); Neutrophils Percent Auto 78.8 % (45.5-73.1); Platelet Count Result 196 k/mm3 (150-375); Red Blood Count 3.31 M/mm3 (4.2-5.4); Red Cell Distribution Width 12.3 % (11.5-14.5); White Blood Count 12.1 K/mm3 (4.5-10.0)
[2024-01-15 05:54] VITALS: BP 101/61; PULSE 85; RESP 18; TEMP 37.2; O2SAT 98
[2024-01-15] MEDS: LEVOTHYROXINE SODIUM 50 MCG TABLET PO (06:50)
[2024-01-15] MEDS: HYDROcodone/acetaminophen (*CRX) 10-325 MG TABLET 1 TAB PO ×4 (07:18→19:47)
[2024-01-15] MEDS: SIMETHICONE 80 MG TAB.CHEW PO ×3 (07:18→16:44)
--- NOTE | 2024-01-15 07:51 | PM.OBPNVD ---
OB - PN: Subj Subjective Date/time seen: 01/15/24 07:51 Patient comments: no complaints and pain well controlled baby status: doing well OB - PN: Obj Data Labs 01/15/24 03:52 01/14/24 06:00 Labs: Laboratory Results - last 24 hr 01/15/24 03:52 WBC 12.1 H RBC 3.31 L Hgb 10.6 L Hct 32.4 L MCV 97.9 MCH 32.0 MCHC 32.7 RDW 12.3 Plt Count 196 MPV 11.3 H Immature Gran % (Auto) 0.7 H Neut % (Auto) 78.8 H Lymph % (Auto) 12.6 L [place] % (Auto) 6.9 Eos % (Auto) 0.7 Baso % (Auto) 0.3 Lymph # (Auto) 1.52 [place] # (Auto) 0.8 H Eos # (Auto) 0.1 Baso # (Auto) 0.0 Abs Immat Gran (auto) 0.08 H Absolute Neuts (auto) 9.5 H Absolute Nucleated RBC 0.000 Nucleated RBC % 0.0 OB - PN A/P Plan day: 1 Plan: routine care Time Spent With Patient Time: Total time spent is greater than 50% in coordination of care (as documented) at patient's floor/unit and/or counseling patient: Exam Narrative: inc c/d/i : Bimanual exam- vagina & uterus: other (Uterus firm, nt @U)
[2024-01-15 08:05] VITALS: BP 97/51; PULSE 73; RESP 18; TEMP 36.8; O2SAT 98
[2024-01-15] MEDS: MULTIVIT/MIN/PREN/FOL AC/IRON TABLET 1 TAB PO (08:36)
[2024-01-15] MEDS: DOCUSATE SODIUM 100 MG CAPSULE PO ×2 (08:36→16:44)
--- NOTE | 2024-01-15 09:42 | WPDANLDPN2 ---
Anes-Prog Note L&D Date/Time: 01/15/24 09:42 Comfortable throughout: section Neuraxial method: spinal Epidural/Spinal procedure site: clean & non-tender Neuro status: Neuro function grossly intact. Cardiovascular status: normal Respiratory status: normal Airway patency: baseline Mental status: baseline Post-Op hydration status: normal Vital Signs: Last Vital Signs Temp 98.3 F 01/15/24 08:05 Pulse 73 01/15/24 08:05 Resp 18 01/15/24 08:05 BP 97/51 L 01/15/24 08:05 Pulse Ox 98 01/15/24 08:05 O2 Del Method Room Air 01/14/24 10:40 Pain score (VAS): 0/10 I/O: Intake & Output 01/14/24 01/15/24 01/15/24 23:59 07:59 15:59 Intake Total 600 450 Output Total 1400 1300 Balance -800 -850 Post-procedural complaints: none Patient feedback: Patient satisfied with anesthetic care.
--- NOTE | 2024-01-15 09:42 | WPDANLDNPN2 ---
Anes-Prog Note L&D-Neuraxial Date/Time: 01/15/24 09:42 Neuraxial medications: epidural PF morphine Opiod-related complaints: none Patient feedback: Patient satisfied with post-operative pain management.
--- NOTE | 2024-01-15 11:30 | PC.NURSE ---
Mother verbalizes she is able to independently latch with appropriate positioning and alignment. She has some nipple discomfort and a blister on the left breast. is currently meeting outcomes for weight, output, jaundice, blood sugar and feeding frequencies of 8-12 times in 24 hours. Mother had baby latched to the left breast, and it looked like a deep latch, but she said it felt a little pinched. We tried to compress a little more tissue into baby's mouth. He let go of the breast and her nipple was smashed on one side. We worked to get a deep latch and baby opens wide to take as much breast in his mouth as he can. Encouraged mother that as he grows and has a larger mouth he will be able to take in more breast tissue. Also recommended she rotate positions so baby's mouth doesn't rub the same spot on her nipple every feeding. Mother is encouraged to call for assistance if her doesn?t latch, pain with latching, questions or concerns. Mother voiced understanding of information shared along with the mom/baby guide and name/number on board for additional resource. Reported to the Primary RN.
[2024-01-15] MEDS: IBUPROFEN 600 MG TABLET PO ×2 (14:46→20:46)
[2024-01-15] MEDS: LIDOCAINE 5% PATCH 1 PATCH TRANSDERM (14:50)
[2024-01-15 20:00] VITALS: BP 120/68; PULSE 76; RESP 16; TEMP 37; O2SAT 100
[2024-01-16] MEDS: ACETAMINOPHEN 325 MG TABLET 650 MG PO ×2 (03:45→10:01)
[2024-01-16] MEDS: IBUPROFEN 600 MG TABLET PO ×2 (03:45→10:01)
[2024-01-16] MEDS: LEVOTHYROXINE SODIUM 50 MCG TABLET PO (07:03)
--- NOTE | 2024-01-16 07:21 | PM.OBPNVD ---
OB - PN: Subj Subjective Date/time seen: 01/16/24 07:21 Patient comments: no complaints and pain well controlled baby status: doing well OB - PN: Obj Data Labs 01/15/24 03:52 01/14/24 06:00 OB - PN A/P Plan day: 2 Plan: routine care and discharge home Time Spent With Patient Time: Total time spent is greater than 50% in coordination of care (as documented) at patient's floor/unit and/or counseling patient: Exam Narrative: inc minimal bleeding left edge : Bimanual exam- vagina & uterus: other (Uterus firm, nt @U)
[2024-01-16 08:20] VITALS: BP 104/62; PULSE 66; RESP 18; TEMP 36.8; O2SAT 98
[2024-01-16] MEDS: SIMETHICONE 80 MG TAB.CHEW PO (09:15)
[2024-01-16] MEDS: MULTIVIT/MIN/PREN/FOL AC/IRON TABLET 1 TAB PO (09:15)
[2024-01-16] MEDS: DOCUSATE SODIUM 100 MG CAPSULE PO (09:16)
[2024-01-16] MEDS: HYDROcodone/acetaminophen (*CRX) 10-325 MG TABLET 1 TAB PO (10:50)
--- NOTE | 2024-01-16 11:00 | PC.NURSE ---
Mother verbalizes she is able to independently latch with appropriate positioning and alignment. She denies any nipple discomfort and is responsively . Infant is currently meeting outcomes for weight, output, jaundice, blood sugar and feeding frequencies of 8-12 times in 24 hours. Mother declines any additional assistance or education at this time. Mother is encouraged to call for assistance if her infant doesn?t latch, pain with latching, questions or concerns. Mother voiced understanding of information shared along with the mom/baby guide for an additional resource. Reported to the Primary RN.
[2024-01-17 11:22] VITALS: BP 106/74; PULSE 70; RESP 18; TEMP 36.7; O2SAT 97
== END 2024-01-16 12:02 | disposition home or self-care (01) | DRG 785 ==
LOC: ANHLDR 08:44 → ANHOB2 11:20
PROVIDERS: Admitting Provider Obstetrics & Gynecology Gynecology; Visit Provider Obstetrics & Gynecology Gynecology
PROC: 10D00Z1 Extraction of Products of Conception, Low, Open Approach (ICD-10-PCS; CPT 59514; principal; 2024-01-14 07:30)
DX: O34.211 Maternal care for low transverse scar from previous cesarean delivery (principal); Z37.0 Single live birth; Z3A.39 39 weeks gestation of pregnancy; Z30.2 Encounter for sterilization; O24.429 Gestational diabetes mellitus in childbirth, unspecified control
CPT/HCPCS: 36415; 82947; 85025; 86592; 86703; 86850; 86900; 86901; 88302; 88307; A9270; G0432; J0690; J1200; J1885; J2274; J2371; J2405; J2590; J7120

== ENCOUNTER 2024-01-21 12:40 | Outpatient (CLI) | payer BC, SELFPAY ==
--- NOTE | ~2024-01-21 | US_ITS ---
US pelvic complete Ordering provider: Estela Bower CNM History: . Post op pain . Comparison: None. Technique: Transabdominal and endovaginal ultrasound of the pelvis (Doppler ultrasound interrogation techniques used as needed for this exam.) FINDINGS: CERVIX: Normal. UTERUS: Measures 15.1x 11.2x 7.7 cm in length which is within normal limits and is anteverted. No my ometrial masses. ENDOMETRIUM: Diffusely thickened measuring 20.7 mm. (Note: the premenopausal endometrium may measure up to 16 mm when in the secretory phase.) Complex echogenicity of the endometrium. CUL DE SAC: No free fluid. RIGHT OVARY: Not demonstrated. LEFT OVARY: Not demonstrated. ADNEXA: Normal. No mass. IMPRESSION: Thickened endometrium with mixed echogenicity. Hematoma or retained products is possible. Clinical co rrelation advised. Reviewed, dictated and finalized at location A. IMPRESSION: Thickened endometrium with mixed echogenicity. Hematoma or retained products is possible. Clinical correlation advised.
== END 2024-01-21 12:41 | disposition home or self-care (01) ==
LOC: GOSHIMG 12:40
PROVIDERS: PCP Advanced Practice Midwife; Visit Provider Advanced Practice Midwife
DX: R39.89 Other symptoms and signs involving the genitourinary system (principal); G89.18 Other acute postprocedural pain
CPT/HCPCS: 76856